=== PATIENT | female | born 1990 | race Two or more races ===

== ENCOUNTER → 2020-02-15 | Outpatient (CLI) | payer OTHER ==
[~2020-02-15] MED LIST: METOPROLOL SUCC50 MG
== END | disposition home or self-care (01) ==
LOC: PPH VACUNA
DX: Z23 Encounter for immunization (principal)

== ENCOUNTER 2020-11-22 14:10 | Outpatient (CLI) | payer OTHER | END 2020-11-22 14:30 | disposition home or self-care (01) | LOC: PPH VACUNA 14:10 | PROVIDERS: ATTEND Emergency Medicine Pediatric Emergency Medicine | DX: Z23 Encounter for immunization (principal) ==

== ENCOUNTER 2024-03-18 10:14 | Emergency (ER) | payer OTHER ==
[~2024-03-18] VITALS: Ht 175.3 cm; Wt 100.7 kg
[2024-03-18] MEDS ORDERED: METFORMIN HCL1000 M2 (10:35)
[2024-03-18] MEDS ORDERED: TENORMIN100 M1 (10:35)
[2024-03-18] MEDS ORDERED: COZAAR100 MG (10:36)
[2024-03-18] MEDS ORDERED: SIMVASTATIN5 MG (10:36)
[2024-03-18] MEDS ORDERED: HYDROCHLOROTH12.5 M2 (10:36)
[2024-03-18] MEDS ORDERED: JARDIANCE10 MG (10:36)
[2024-03-18] MEDS ORDERED: MEPERIDINE HCL/PF 50 MG/ML VIAL IM STA (13:09)
[2024-03-18] MEDS ORDERED: 0.9 % SODIUM CHLORIDE 1,000 ML IV STA (13:10)
[2024-03-18] MEDS ORDERED: PROMETHAZINE HCL 50 MG/ML AMPUL IM STA (13:10)
[2024-03-18] MEDS ORDERED: PROMETHAZINE HCL 25 MG/ML AMPUL ONE (13:29)
[2024-03-18 14:04] LABS: HEMOGLOBIN 13.1 g/dL (12.0-15.00); MEAN CELL VOLUME 85.5 fL (80.00-100.00); MEAN CORPUSCULAR HEMOGLOBIN 28.1 pg (27.00-32.0); MEAN CORPUSCULAR HGB CONC 32.8 g/dl (32.0-36.0); PLATELET COUNT 275 K/uL (150-450); RED BLOOD COUNT 4.68 M/uL (4.00-6.00)
[2024-03-18 14:55] LABS: ALBUMIN 3.8 gm/dL (3.4-5.0); BILIRUBIN TOTAL 0.33 mg/dL (0.3-1.2); BILIRUBIN,CONJUGATED 0.1 mg/dL (0.0-0.2); BILIRUBIN,UNCONJUGATED 0.23 mg/dL (0.0-0.6); CALCIUM 10.6 mg/dL (8.5-10.1); CREATININE SERUM 0.69 mg/dL (0.55-1.02); GFR 97.98; POTASSIUM 3.28 mEq/L (3.5-5.1); TOTAL PROTEIN 8.8 gm/dL (6.4-8.2)
[2024-03-18 16:29] LABS: URINE APPEARANCE Clear; URINE BILIRRUBIN Negative (NEGATIVE); URINE BLOOD Negative; URINE COLOR Yellow; URINE LEUKOCYTE Negative; URINE NITRATE Negative; URINE PROTEIN Negative (NEGATIVE); URINE UROBILINOGEN 0.2 E.U./dl
[2024-03-18 16:32] LABS: URINE BACTERIA 296.1 uL (0.0-1933); URINE EPITHELIAL CELLS 8.5 uL (0.0-38.8); URINE RBC 24.7 uL (0.0-20.8); URINE WBC 3.4 uL (0.0-23.2)
[2024-03-18 16:33] LABS: URINE GLUCOSE >=1000 MG/DL (NEGATIVE); URINE KETONE 80 (NEGATIVE)
[2024-03-18] MEDS ORDERED: ORPHENADRINE CITRATE 30 MG/ML AMPUL ONE (17:28)
[2024-03-18] MEDS ORDERED: ORPHENADRINE CITRATE 30 MG/ML AMPUL IM STA (17:36)
== END 2024-03-18 17:38 | disposition home or self-care (01) ==
LOC: ER 10:16
PROVIDERS: General Practice
DX: M54.89 Other dorsalgia (principal); R10.11 Right upper quadrant pain; E11.9 Type 2 diabetes mellitus without complications; Z79.84 Long term (current) use of oral hypoglycemic drugs; I10 Essential (primary) hypertension; Z88.8 Allergy status to other drugs, medicaments and biological substances

== ENCOUNTER 2024-03-21 12:02 | Inpatient (IN) | payer OTHER ==
[~2024-03-21] VITALS: Ht 175.3 cm; Wt 99.8 kg
[~2024-03-21 12:02] MED LIST changes: +COZAAR100 MG; +HYDROCHLOROTH12.5 M2; +JARDIANCE10 MG; +METFORMIN HCL1000 M2; +SIMVASTATIN5 MG; +TENORMIN100 M1
[2024-03-21] MEDS ORDERED: FAMOTIDINE/PF 20 MG/2 ML VIAL IV ONE (14:30)
[2024-03-21] MEDS ORDERED: 0.9 % SODIUM CHLORIDE 500 ML IV ONE (14:30)
[2024-03-21] MEDS ORDERED: ONDANSETRON HCL 2 MG/ML VIAL IV ONE (14:30)
[2024-03-21] MEDS ORDERED: ONDANSETRON HCL 2 MG/ML VIAL ONE (14:47)
[2024-03-21] MEDS ORDERED: FAMOTIDINE/PF 20 MG/2 ML VIAL ONE (14:48)
[2024-03-21 15:43] LABS: HEMATOCRIT 35.9 % (36.0-45.00); MEAN CELL VOLUME 83.4 fL (80.00-100.00); MEAN CORPUSCULAR HEMOGLOBIN 27.9 pg (27.00-32.0); MEAN CORPUSCULAR HGB CONC 33.5 g/dl (32.0-36.0); PLATELET COUNT 296 K/uL (150-450); RED BLOOD COUNT 4.31 M/uL (4.00-6.00); RED CELL DISTRIBUTION WIDTH 14.3 % (11.5-14.5)
[2024-03-21 15:57] LABS: INR 1.03; PARTIAL THROMBOPLASTIN TIME 22.3 SECONDS (22.0-34.0); PROTHROMBIN TIME 11.2 SECONDS (9.0-11.5)
[2024-03-21 16:02] LABS: ALBUMIN 2.9 gm/dL (3.4-5.0); BILIRUBIN TOTAL 0.55 mg/dL (0.3-1.2); CALCIUM 9.9 mg/dL (8.5-10.1); CREATININE SERUM 0.84 mg/dL (0.55-1.02); GFR 78.08; GLOBULINA 5.7 G/DL (2.4-3.5); POTASSIUM 4.03 mEq/L (3.5-5.1); TOTAL PROTEIN 8.6 gm/dL (6.4-8.2)
[2024-03-21 16:52] LABS: URINE APPEARANCE Cloudy; URINE BILIRRUBIN Negative (NEGATIVE); URINE BLOOD Trace; URINE COLOR Yellow; URINE LEUKOCYTE Negative; URINE NITRATE Negative; URINE PROTEIN Trace (NEGATIVE); URINE UROBILINOGEN 0.2 E.U./dl
[2024-03-21 16:56] LABS: URINE BACTERIA 3767.3 uL (0.0-1933); URINE EPITHELIAL CELLS 81.3 uL (0.0-38.8); URINE RBC 16.7 uL (0.0-20.8); URINE WBC 37.2 uL (0.0-23.2)
[2024-03-21 17:13] LABS: URINE CAST 0.29 uL (0.0-1.40); URINE GLUCOSE >=1000 MG/DL (NEGATIVE); URINE KETONE 40 (NEGATIVE)
[2024-03-21] MEDS ORDERED: MEPERIDINE HCL/PF 50 MG/ML VIAL IM ONE (17:30)
[2024-03-21] MEDS ORDERED: PIPERACILLIN/TAZOBACTAM SODIUM 3.375 GM VIAL IV ONE ×2 (17:30→17:37)
[2024-03-21 17:49] LABS: BILIRUBIN TOTAL 0.55 mg/dL (0.3-1.2)
[2024-03-21 17:51] LABS: BILIRUBIN,CONJUGATED 0.11 mg/dL (0.0-0.2); BILIRUBIN,UNCONJUGATED 0.44 mg/dL (0.0-0.6)
[2024-03-21] MEDS ORDERED: 0.9 % SODIUM CHLORIDE 1,000 ML IV SCH (20:30)
[2024-03-21] MEDS ORDERED: DEXTROSE 50 % IN WATER 0.5 G/ML DISP.SYRIN IV PRN (20:45)
[2024-03-21] MEDS ORDERED: MORPHINE SULFATE 4 MG/ML CARTRIDGE IV PRN (20:45)
[2024-03-21] MEDS ORDERED: INSULIN LISPRO 1,000 UNIT/10 ML UNITS SUBCUTANEO PRN (20:45)
[2024-03-21] MEDS ORDERED: ACETAMINOPHEN 500 MG GEL..CAP PO PRN (20:45)
[2024-03-21] MEDS ORDERED: MORPHINE SULFATE 4 MG/ML CARTRIDGE IV ONE (20:45)
[2024-03-21 23:01] VITALS: BP 105/67; O2SAT 100
[2024-03-22] MEDS ORDERED: PIPERACILLIN/TAZOBACTAM SODIUM 3.375 GM in DEXTROSE 5 % IN WATER 100 ML IV SCH
[2024-03-22 08:23] VITALS: BP 117/75; O2SAT 94
[2024-03-22] MEDS ORDERED: ENOXAPARIN SODIUM 40 MG/0.4 ML SYRINGE SUBCUTANEO SCH (09:00)
[2024-03-22] MEDS ORDERED: FAMOTIDINE/PF 20 MG in 0.9 % SODIUM CHLORIDE 8 ML IV PUSH SCH (09:00)
[2024-03-22] MEDS ORDERED: METOPROLOL SUCCINATE 50 MG TAB.SR.24H PO SCH (09:00)
[2024-03-22] MEDS ORDERED: LOSARTAN/HYDROCHLOROTHIAZIDE 1 TAB TABLET PO SCH (09:00)
[2024-03-22] MEDS ORDERED: BUPIVACAINE HCL 30 ML VIAL IJ ONE (15:45)
[2024-03-22] MEDS ORDERED: SIMVASTATIN 10 MG TABLET PO SCH (17:00)
[2024-03-22] MEDS ORDERED: MORPHINE SULFATE 4 MG/ML VIAL IV ONE (17:00)
[2024-03-22] MEDS ORDERED: MORPHINE SULFATE 4 MG/ML CARTRIDGE IV PRN (17:15)
[2024-03-22] MEDS ORDERED: MEPERIDINE HCL 25 MG/ML AMPUL IV ONE (17:30)
[2024-03-22 20:23] VITALS: BP 146/88
[2024-03-23 00:16] VITALS: BP 145/79
[2024-03-23] MEDS ORDERED: ACETAMINOPHEN 500 MG GEL..CAP PO SCH ×2 (06:14→09:00)
[2024-03-23 08:29] LABS: MEAN CELL VOLUME 86.5 fL (80.00-100.00); MEAN CORPUSCULAR HGB CONC 32.4 g/dl (32.0-36.0); PLATELET COUNT 281 K/uL (150-450); RED BLOOD COUNT 3.93 M/uL (4.00-6.00)
[2024-03-23] MEDS ORDERED: GABAPENTIN 300 MG CAPSULE PO SCH (09:00)
[2024-03-23 09:03] VITALS: BP 149/90; O2SAT 99
[2024-03-23 09:37] LABS: ALBUMIN 2.4 gm/dL (3.4-5.0); BILIRUBIN TOTAL 0.45 mg/dL (0.3-1.2); CALCIUM 8.5 mg/dL (8.5-10.1); CREATININE SERUM 0.53 mg/dL (0.55-1.02); GFR 132.85; GLOBULINA 4.2 G/DL (2.4-3.5); TOTAL PROTEIN 6.6 gm/dL (6.4-8.2)
[2024-03-23 17:29] VITALS: BP 150/80
[2024-03-24 00:27] VITALS: BP 126/78; O2SAT 97
[2024-03-24 09:01] VITALS: BP 127/85; O2SAT 97
== END 2024-03-24 14:12 | disposition home or self-care (01) | DRG 419 ==
LOC: ER 12:04 → MEDI 20:43
PROVIDERS: Emergency Medicine; Student in an Organized Health Care Education/Training Program; ADMIT Internal Medicine; ATTEND Internal Medicine
PROC: BW40ZZZ Ultrasonography of Abdomen (ICD-10-PCS; 2024-03-21)
PROC: 0DNW4ZZ Release Peritoneum, Percutaneous Endoscopic Approach (ICD-10-PCS; 2024-03-22)
PROC: 0FT44ZZ Resection of Gallbladder, Percutaneous Endoscopic Approach (ICD-10-PCS; principal; 2024-03-22 12:00)
DX: K80.00 Calculus of gallbladder with acute cholecystitis without obstruction (principal); K82.A1 Gangrene of gallbladder in cholecystitis; K66.0 Peritoneal adhesions (postprocedural) (postinfection); K82.8 Other specified diseases of gallbladder; R00.0 Tachycardia, unspecified; E11.9 Type 2 diabetes mellitus without complications; I10 Essential (primary) hypertension; E78.5 Hyperlipidemia, unspecified; Z79.84 Long term (current) use of oral hypoglycemic drugs